=== PATIENT | male | born 1975 | race Two or more races ===

== ENCOUNTER 2021-05-06 06:16 | Inpatient (IN) | payer BC, OTHER ==
[~2021-05-06] VITALS: Ht 167.6 cm; Wt 73.4 kg
[2021-05-06] MEDS ORDERED: SODIUM CHLORIDE 0.9% 1,000 ML IV ONE (09:15)
[2021-05-06 10:06] LABS: INR 1.63 (0.9-1.15); Partial Thromboplastin Time 30.4 sec (23.6-33.0)
[2021-05-06] MEDS ORDERED: IOHEXOL 300 MG/ML 100ML BOTTLE IJ ONE (10:10)
[2021-05-06 10:16] LABS: Basophils # (auto) 0.1 10 ^3/uL (0-0.2); Basophils % (auto) 0.7 % (0.0-2.0); Eosinophils # (auto) 0.2 10 ^3/uL (0-0.8); Eosinophils % (auto) 1.5 % (0.0-7.0); Hematocrit 34.7 % (41.0-53.0); Hemoglobin 11.9 g/dL (13.5-17.5); Lymphocytes # (auto) 2.2 10 ^3/uL (0.4-5.4); Lymphocytes % (auto) 15.8 % (10.0-50.0); Mean Corpuscular Hemoglobin 36.4 pg (28.0-32.0); Mean Corpuscular Hgb Conc. 34.4 g/dL (32.0-36.0); Mean Corpuscular Volume 105.6 fL (80.0-100.0); Monocytes # (auto) 1.6 10 ^3/uL (0-1.3); Monocytes % (auto) 11.9 % (0.0-12.0); Neutrophils # (auto) 9.6 10 ^3/uL (1.6-8.6); Neutrophils % (auto) 70.1 % (37.0-80.0); Nucleated Red Blood Cells % 0.1 %; Red Blood Cells 3.28 10^6/uL (4.5-5.90); Red Cell Distribution Width 15.5 % (11.8-14.3); White Blood Cell 13.6 10^3/uL (4.4-10.8)
[2021-05-06 10:27] LABS: Albumin 2.9 g/dL (3.4-5.0); BUN/Creatinine Ratio 14.3; Calcium 8.9 mg/dL (8.5-10.1); Magnesium 1.7 mg/dL (1.6-2.6); Potassium 3.4 mmol/L (3.5-5.1)
[2021-05-06 10:39] LABS: Bilirubin, Total 7.8 mg/dL (0.2-1.0); Total Protein 5.6 g/dL (6.4-8.2)
[2021-05-06] MEDS ORDERED: FUROSEMIDE 40 MG/4 ML VIAL IV ONE (12:30)
[2021-05-06] MEDS ORDERED: SPIRONOLACTONE 25 MG TAB PO ONE (12:30)
[2021-05-06] MEDS ORDERED: LACTULOSE 20Gm/30ML SOLN PO ONE (12:30)
[2021-05-06] MEDS ORDERED: MORPHINE SULFATE INJECTION 2 MG/ML SYRG IV PRN ×2 (15:30→23:00)
[2021-05-06] MEDS ORDERED: NITROGLYCERIN 0.4 MG SL TAB SL PRN ×2 (15:30→23:00)
[2021-05-06] MEDS ORDERED: LISI20TA28 PO (18:21)
[2021-05-06] MEDS ORDERED: DIAZ5TAB3 PO (18:21)
[2021-05-06] MEDS ORDERED: PANT40T PO (18:21)
[2021-05-06] MEDS ORDERED: BUSP15TA60 PO (18:21)
[2021-05-06] MEDS ORDERED: BUPR-60 PO (18:21)
[2021-05-06] MEDS ORDERED: ATEN25TA PO (18:21)
[2021-05-06] MEDS ORDERED: CHOL20007 PO (18:23)
[2021-05-06] MEDS ORDERED: POM (18:23)
[2021-05-06] MEDS ORDERED: ASCO500T11 PO (18:23)
[2021-05-06] MEDS ORDERED: FERR27TA2 PO (18:23)
[2021-05-06] MEDS ORDERED: MILK1000 PO (18:23)
[2021-05-06] MEDS ORDERED: MULT-1018 PO (18:23)
[2021-05-06] MEDS ORDERED: ALBUMIN 25% 100 ML IV ONE (21:45)
[2021-05-06] MEDS ORDERED: PANTOPRAZOLE 40 MG/10 ML VIAL INJ IV ONE (21:45)
[2021-05-06] MEDS ORDERED: POTASSIUM CHL 20 Meq TABLET PO ONE (21:45)
[2021-05-06] MEDS ORDERED: CEFTRIAXONE SODIUM 2 GM in D5W 5% 50 ML IV ONE (21:45)
[2021-05-06 21:51] VITALS: BP 116/68
[2021-05-06 22:00] VITALS: BP 116/68
[2021-05-06] MEDS ORDERED: BUSP10TA90 PO (22:12)
[2021-05-06] MEDS ORDERED: ATEN-60 PO (22:12)
[2021-05-06] MEDS ORDERED: BUPR150T8 PO (22:12)
[2021-05-06] MEDS ORDERED: LORazepam 2MG/ML-1ML VIAL IV PRN (23:00)
[2021-05-06] MEDS: ALBUMIN 25% 100 ML IV SCH (23:19)
[2021-05-06] MEDS: PROPRANOLOL HCL 20 MG TAB PO SCH (23:21)
[2021-05-06] MEDS: LACTULOSE 20Gm/30ML SOLN PO SCH (23:23)
[2021-05-07] MEDS ORDERED: KETOROLAC TROMETH 30 MG/ML 1ML VIAL IV ONE
[2021-05-07] MEDS ORDERED: cefTRIAXone 1GM/50ML D5W 100 ML IV ONE (01:45)
[2021-05-07] MEDS ORDERED: IPRATROPIUM BROM 0.5 MG/2.5ML INH SOL NEB SCH (02:00)
[2021-05-07] MEDS ORDERED: IPRATROPIUM BROM 0.5 MG/2.5ML INH SOL NEB PRN (02:00)
[2021-05-07] MEDS ORDERED: CEFTRIAXONE SODIUM 2 GM in D5W 5% 50 ML IV SCH (02:00)
[2021-05-07] MEDS: LACTULOSE 20Gm/30ML SOLN PO SCH ×4 (02:00→21:52)
[2021-05-07 05:00] VITALS: BP 113/75
[2021-05-07] MEDS: ALBUMIN 25% 100 ML IV SCH (05:27)
[2021-05-07 08:26] LABS: Basophils # (auto) 0.1 10 ^3/uL (0-0.2); Basophils % (auto) 0.5 % (0.0-2.0); Eosinophils # (auto) 0.3 10 ^3/uL (0-0.8); Eosinophils % (auto) 2.6 % (0.0-7.0); Hematocrit 31.7 % (41.0-53.0); Hemoglobin 11.2 g/dL (13.5-17.5); Mean Corpuscular Hemoglobin 37.1 pg (28.0-32.0); Mean Corpuscular Hgb Conc. 35.2 g/dL (32.0-36.0); Mean Corpuscular Volume 105.3 fL (80.0-100.0); Monocytes # (auto) 0.9 10 ^3/uL (0-1.3); Monocytes % (auto) 8.6 % (0.0-12.0); Neutrophils # (auto) 6.8 10 ^3/uL (1.6-8.6); Neutrophils % (auto) 68.3 % (37.0-80.0); Nucleated Red Blood Cells % 0.1 %; Red Blood Cells 3.01 10^6/uL (4.5-5.90); Red Cell Distribution Width 15.1 % (11.8-14.3)
[2021-05-07 08:58] LABS: Albumin 3.1 g/dL (3.4-5.0); Calcium 8.6 mg/dL (8.5-10.1); Magnesium 2.3 mg/dL (1.6-2.6); Potassium 3.2 mmol/L (3.5-5.1)
[2021-05-07 09:00] VITALS: BP 102/62
[2021-05-07 09:10] LABS: INR 1.65 (0.9-1.15); Partial Thromboplastin Time 34.8 sec (23.6-33.0)
[2021-05-07 09:16] LABS: BUN/Creatinine Ratio 14.1; Bilirubin, Total 6.2 mg/dL (0.2-1.0); Phosphorus 2.6 mg/dL (2.5-4.90); Total Protein 5.6 g/dL (6.4-8.2); Uric Acid 4.5 mg/dL (3.5-7.2)
[2021-05-07] MEDS ORDERED: POTASSIUM CHL 20 Meq TABLET PO SCH (10:00)
[2021-05-07] MEDS ORDERED: predniSONE 20 MG TAB PO SCH (10:00)
[2021-05-07] MEDS: FUROSEMIDE 20 MG TAB PO SCH (10:25)
[2021-05-07] MEDS: PROPRANOLOL HCL 20 MG TAB PO SCH ×2 (10:25→21:53)
[2021-05-07] MEDS: SPIRONOLACTONE 25 MG TAB PO SCH (10:25)
[2021-05-07] MEDS: rifAXIMin 550 MG TAB PO SCH ×2 (10:25→21:52)
[2021-05-07] MEDS: PANTOPRAZOLE 40 MG/10 ML VIAL INJ IV SCH (10:30)
[2021-05-07] MEDS ORDERED: POTASSIUM CHL 20 Meq TABLET PO ONE (10:45)
[2021-05-07] MEDS ORDERED: FOLIC ACID 1 MG in D5W 5% 50 ML INJ SCH (10:59)
[2021-05-07] MEDS ORDERED: PHYTONADIONE (VIT K)10 MG/ML 1ML VIAL SUBCUT ONE (11:00)
[2021-05-07] MEDS ORDERED: FOLIC ACID 1 MG in D5W 5% 50 ML INJ ONE (11:00)
[2021-05-07] MEDS ORDERED: traMADol HCL 50 MG TAB PO PRN (11:00)
[2021-05-07] MEDS ORDERED: THIAMINE 100mg/ml INJ (200mg/2ml VIAL) IV ONE (11:00)
[2021-05-07 12:53] LABS: Hepatitis A Ab IgM Negative
[2021-05-07 13:00] VITALS: BP 104/66
[2021-05-07 13:14] LABS: Hepatitis B Core IgM Negative
[2021-05-07 13:17] LABS: Hepatitis C Antibody Negative (Negative)
[2021-05-07 17:00] VITALS: BP 103/61
[2021-05-07 22:00] VITALS: BP 96/66
[2021-05-07 22:20] LABS: Urine Bacteria NONE SEEN /hpf (None Seen); Urine Blood Negative /uL (Negative); Urine Mucus FEW (None Seen); Urine Specific Gravity 1.032 (1.001-1.035); Urine WBC 2 /hpf (0 - 3)
[2021-05-08 05:00] VITALS: BP 108/69
[2021-05-08] MEDS: LACTULOSE 20Gm/30ML SOLN PO SCH ×2 (05:15→14:00)
[2021-05-08 07:40] LABS: Basophils # (auto) 0.1 10 ^3/uL (0-0.2); Basophils % (auto) 0.4 % (0.0-2.0); Eosinophils # (auto) 0.2 10 ^3/uL (0-0.8); Eosinophils % (auto) 1.1 % (0.0-7.0); Hematocrit 34.6 % (41.0-53.0); Hemoglobin 11.8 g/dL (13.5-17.5); Lymphocytes # (auto) 2.6 10 ^3/uL (0.4-5.4); Lymphocytes % (auto) 17.2 % (10.0-50.0); Mean Corpuscular Hemoglobin 36.2 pg (28.0-32.0); Mean Corpuscular Hgb Conc. 34.2 g/dL (32.0-36.0); Monocytes # (auto) 1.4 10 ^3/uL (0-1.3); Neutrophils # (auto) 10.9 10 ^3/uL (1.6-8.6); Neutrophils % (auto) 72.3 % (37.0-80.0); Nucleated Red Blood Cells % 0.1 %; Red Blood Cells 3.27 10^6/uL (4.5-5.90); Red Cell Distribution Width 15.1 % (11.8-14.3)
[2021-05-08 07:42] LABS: Mean Corpuscular Volume 105.8 fL (80.0-100.0)
[2021-05-08 07:59] LABS: Calcium 8.8 mg/dL (8.5-10.1); Potassium 3.4 mmol/L (3.5-5.1)
[2021-05-08 08:03] LABS: BUN/Creatinine Ratio 20.3; Bilirubin, Total 6.2 mg/dL (0.2-1.0); Total Protein 5.4 g/dL (6.4-8.2)
[2021-05-08 09:00] VITALS: BP 101/64
[2021-05-08] MEDS ORDERED: cefTRIAXone 1GM/50ML D5W 50 ML IV SCH (09:00)
[2021-05-08] MEDS: FUROSEMIDE 20 MG TAB PO SCH (10:00)
[2021-05-08] MEDS: rifAXIMin 550 MG TAB PO SCH (10:00)
[2021-05-08] MEDS ORDERED: THIAMINE 100mg/ml INJ (200mg/2ml VIAL) IV SCH (10:00)
[2021-05-08] MEDS: SPIRONOLACTONE 25 MG TAB PO SCH (10:00)
[2021-05-08] MEDS: PROPRANOLOL HCL 20 MG TAB PO SCH (10:00)
[2021-05-08] MEDS: PANTOPRAZOLE 40 MG/10 ML VIAL INJ IV SCH (10:00)
[2021-05-08] MEDS ORDERED: POTASSIUM CHL 20 Meq TABLET PO ONE (10:15)
[2021-05-08] MEDS ORDERED: FOLIC ACID 1 MG TAB PO SCH (11:08)
[2021-05-08 13:00] VITALS: BP 110/72
[2021-05-08 13:17] VITALS: BP 110/72
== END 2021-05-08 14:40 | disposition home or self-care (01) | DRG 432 ==
LOC: ER 06:16 → OVERFLOW 15:21 → CENTRAL 21:23
PROVIDERS: ADMIT Hospitalist; ATTEND Internal Medicine
PROC: 0W9G3ZX Drainage of Peritoneal Cavity, Percutaneous Approach, Diagnostic (ICD-10-PCS; principal; 2021-05-07)
DX: K70.31 Alcoholic cirrhosis of liver with ascites (principal); E43 Unspecified severe protein-calorie malnutrition; K65.2 Spontaneous bacterial peritonitis; K76.6 Portal hypertension; D68.4 Acquired coagulation factor deficiency; D53.9 Nutritional anemia, unspecified; K42.9 Umbilical hernia without obstruction or gangrene; K72.90 Hepatic failure, unspecified without coma; Z20.822 Contact with and (suspected) exposure to COVID-19; K70.11 Alcoholic hepatitis with ascites; D69.6 Thrombocytopenia, unspecified; D75.89 Other specified diseases of blood and blood-forming organs; E87.6 Hypokalemia; D72.829 Elevated white blood cell count, unspecified; K31.89 Other diseases of stomach and duodenum; J44.9 Chronic obstructive pulmonary disease, unspecified; F17.200 Nicotine dependence, unspecified, uncomplicated; F32.9 Major depressive disorder, single episode, unspecified; F41.9 Anxiety disorder, unspecified; K29.20 Alcoholic gastritis without bleeding; Z79.899 Other long term (current) drug therapy; Z80.0 Family history of malignant neoplasm of digestive organs; Z68.26 Body mass index [BMI] 26.0-26.9, adult
CPT/HCPCS: 36415; 71046; 74177; 76705; 76942; 80053; 80074; 81001; 82140; 82306; 83690; 83735; 83880; 84100; 84443; 84484; 84550; 85025; 85610; 85730; 87040; 87086; 87205; 87426; 89051; 93005; 96361; 96374; C9113; G0378; J0696; J1885; J3430; J7060; P9047

== ENCOUNTER 2021-06-07 02:38 | Inpatient (IN) | payer BC ==
[~2021-06-07] VITALS: Ht 167.6 cm; Wt 73.7 kg
[~2021-06-07 02:38] MED LIST: ASCO500T11 PO; ATEN25TA PO; BUPR-60 PO; BUSP10TA90 PO; CHOL20007 PO; DIAZ5TAB3 PO; FERR27TA2 PO; LISI20TA28 PO; MILK1000 PO; MULT-1018 PO; PANT40T PO; POM
[2021-06-07 03:32] LABS: Eosinophils # (auto) 0 10 ^3/uL (0-0.8); Hematocrit 33.6 % (41.0-53.0); Monocytes # (auto) 0.3 10 ^3/uL (0-1.3); Neutrophils # (auto) 11.9 10 ^3/uL (1.6-8.6); Red Cell Distribution Width 14.9 % (11.8-14.3)
[2021-06-07 03:33] LABS: Basophils # (auto) 0.1 10 ^3/uL (0-0.2); Basophils % (auto) 0.6 % (0.0-2.0); Eosinophils % (auto) 0.2 % (0.0-7.0); Hemoglobin 11.7 g/dL (13.5-17.5); Lymphocytes % (auto) 7.3 % (10.0-50.0); Mean Corpuscular Hemoglobin 36.5 pg (28.0-32.0); Mean Corpuscular Hgb Conc. 34.8 g/dL (32.0-36.0); Monocytes % (auto) 2.4 % (0.0-12.0); Neutrophils % (auto) 89.5 % (37.0-80.0); White Blood Cell 13.2 10^3/uL (4.4-10.8)
[2021-06-07 03:47] LABS: Albumin 2.8 g/dL (3.4-5.0); BUN/Creatinine Ratio 13.1; Calcium 8.7 mg/dL (8.5-10.1); Potassium 3.4 mmol/L (3.5-5.1)
[2021-06-07 03:50] LABS: Bilirubin, Total 13.2 mg/dL (0.2-1.0); Total Protein 5.6 g/dL (6.4-8.2)
[2021-06-07 04:17] LABS: INR 1.61 (0.9-1.15); Partial Thromboplastin Time 29.6 sec (23.6-33.0)
[2021-06-07] MEDS ORDERED: MORPHINE SULFATE 4 MG/ML SYR/VIAL IV ONE (06:45)
[2021-06-07] MEDS ORDERED: SPIRONOLACTONE 25 MG TAB PO ONE (07:30)
[2021-06-07] MEDS ORDERED: FUROSEMIDE 100 MG/10ML VIAL IV ONE (07:30)
[2021-06-07] MEDS ORDERED: ACETAMINOPHEN 325 MG TAB PO PRN (08:15)
[2021-06-07] MEDS ORDERED: ALUM & MAG HYDROX-SIMETH LIQ(MAALOX) 30 ML PO PRN (08:15)
[2021-06-07] MEDS ORDERED: LORazepam 0.5 MG TAB PO PRN (08:15)
[2021-06-07] MEDS ORDERED: MORPHINE SULFATE INJECTION 2 MG/ML SYRG IV PRN ×2 (08:15)
[2021-06-07] MEDS ORDERED: NITROGLYCERIN 0.4 MG SL TAB SL PRN (08:15)
[2021-06-07] MEDS ORDERED: ONDANSETRON HCL 4 MG/2 ML VIAL IV PRN (08:15)
[2021-06-07] MEDS ORDERED: DEXTROSE (50%) 50ML SYRG IV PRN (09:45)
[2021-06-07] MEDS ORDERED: cefTRIAXone 1GM/50ML D5W 50 ML IV SCH (10:00)
[2021-06-07 10:53] LABS: Blood Alcohol < 3.0 mg/dL (0-5); Lipase 232 U/L (73-393)
[2021-06-07 11:15] LABS: Basophils # (auto) 0 10 ^3/uL (0-0.2); Eosinophils # (auto) 0 10 ^3/uL (0-0.8); Eosinophils % (auto) 0.1 % (0.0-7.0); Hemoglobin 11.8 g/dL (13.5-17.5); Monocytes # (auto) 0.3 10 ^3/uL (0-1.3); Nucleated Red Blood Cells % 0.1 %; Red Cell Distribution Width 14.7 % (11.8-14.3)
[2021-06-07 11:17] LABS: Basophils % (auto) 0.3 % (0.0-2.0); Hematocrit 33.9 % (41.0-53.0); Lymphocytes % (auto) 8.8 % (10.0-50.0); Mean Corpuscular Hemoglobin 36.6 pg (28.0-32.0); Mean Corpuscular Hgb Conc. 34.9 g/dL (32.0-36.0); Monocytes % (auto) 2.6 % (0.0-12.0); Neutrophils # (auto) 10.1 10 ^3/uL (1.6-8.6); Neutrophils % (auto) 88.2 % (37.0-80.0); Red Blood Cells 3.23 10^6/uL (4.5-5.90); White Blood Cell 11.4 10^3/uL (4.4-10.8)
[2021-06-07] MEDS: FUROSEMIDE 40 MG/4 ML VIAL IV SCH ×2 (13:24→13:47)
[2021-06-07] MEDS: THIAMINE HCL 100 MG TAB PO SCH (13:35)
[2021-06-07] MEDS: InsuLIN REG 1unit/0.01ml Soln (100units/ml) SC SCH ×3 (13:36→22:00)
[2021-06-07] MEDS: SPIRONOLACTONE 25 MG TAB PO SCH (13:36)
[2021-06-07] MEDS: ACCU-CHEK COMFORT CURVE STRIP VI SCH ×3 (13:36→22:00)
[2021-06-07] MEDS: CEFTRIAXONE SODIUM 2 GM in D5W 5% 50 ML IV SCH (14:30)
[2021-06-07 22:00] VITALS: BP 107/71
[2021-06-07] MEDS: HYDROcodone-ACET 5/325MG TAB PO PRN (22:18)
[2021-06-07] MEDS ORDERED: PROP20TA73 PO (23:48)
[2021-06-08 04:00] VITALS: BP 91/57
[2021-06-08] MEDS: InsuLIN REG 1unit/0.01ml Soln (100units/ml) SC SCH ×4 (07:00→22:00)
[2021-06-08] MEDS: ACCU-CHEK COMFORT CURVE STRIP VI SCH ×4 (07:24→22:13)
[2021-06-08 09:00] VITALS: BP 97/61
[2021-06-08] MEDS: FUROSEMIDE 40 MG/4 ML VIAL IV SCH (09:43)
[2021-06-08] MEDS: SPIRONOLACTONE 25 MG TAB PO SCH (09:43)
[2021-06-08] MEDS: THIAMINE HCL 100 MG TAB PO SCH (09:43)
[2021-06-08 10:02] VITALS: BP 108/74
[2021-06-08 10:52] VITALS: BP 103/82
[2021-06-08] MEDS: CEFTRIAXONE SODIUM 2 GM in D5W 5% 50 ML IV SCH (13:12)
[2021-06-08] MEDS: ALBUMIN 25% 100 ML IV SCH ×2 (13:13→13:30)
[2021-06-08] MEDS: HYDROcodone-ACET 5/325MG TAB PO PRN ×2 (16:03→22:17)
[2021-06-08 22:00] VITALS: BP 93/61
[2021-06-09 05:00] VITALS: BP 92/58
[2021-06-09 06:19] LABS: Basophils # (auto) 0 10 ^3/uL (0-0.2); Eosinophils # (auto) 0.2 10 ^3/uL (0-0.8); Hemoglobin 9.6 g/dL (13.5-17.5)
[2021-06-09 06:27] LABS: Basophils % (auto) 0.6 % (0.0-2.0); Eosinophils % (auto) 2.3 % (0.0-7.0); Hematocrit 26.5 % (41.0-53.0); Lymphocytes # (auto) 1.5 10 ^3/uL (0.4-5.4); Lymphocytes % (auto) 19.4 % (10.0-50.0); Mean Corpuscular Hemoglobin 37.3 pg (28.0-32.0); Mean Corpuscular Hgb Conc. 36.1 g/dL (32.0-36.0); Mean Corpuscular Volume 103.2 fL (80.0-100.0); Monocytes # (auto) 0.8 10 ^3/uL (0-1.3); Monocytes % (auto) 10.3 % (0.0-12.0); Neutrophils # (auto) 5.3 10 ^3/uL (1.6-8.6); Neutrophils % (auto) 67.4 % (37.0-80.0); Nucleated Red Blood Cells % 0.1 %; Red Blood Cells 2.56 10^6/uL (4.5-5.90); Red Cell Distribution Width 13.9 % (11.8-14.3); White Blood Cell 7.9 10^3/uL (4.4-10.8)
[2021-06-09 06:31] LABS: Albumin 2.5 g/dL (3.4-5.0); Calcium 8.1 mg/dL (8.5-10.1)
[2021-06-09 06:33] LABS: BUN/Creatinine Ratio 28.7
[2021-06-09] MEDS: ACCU-CHEK COMFORT CURVE STRIP VI SCH ×2 (06:35→11:30)
[2021-06-09] MEDS: InsuLIN REG 1unit/0.01ml Soln (100units/ml) SC SCH ×2 (06:35→11:30)
[2021-06-09 06:36] LABS: Bilirubin, Total 7.1 mg/dL (0.2-1.0); Total Protein 4.5 g/dL (6.4-8.2)
[2021-06-09 09:00] VITALS: BP 105/65
[2021-06-09] MEDS: CEFTRIAXONE SODIUM 2 GM in D5W 5% 50 ML IV SCH (09:46)
[2021-06-09] MEDS: THIAMINE HCL 100 MG TAB PO SCH (09:47)
[2021-06-09] MEDS: SPIRONOLACTONE 25 MG TAB PO SCH (09:47)
[2021-06-09 12:36] VITALS: BP 120/81
[2021-06-09] MEDS: FUROSEMIDE 40 MG/4 ML VIAL IV SCH (12:47)
[2021-06-09] MEDS ORDERED: POTASSIUM CHL 20 Meq TABLET PO ONE (13:00)
[2021-06-09] MEDS ORDERED: LEVO500T31 PO (13:08)
== END 2021-06-09 15:31 | disposition home or self-care (01) | DRG 872 ==
LOC: ER 02:38 → TELE 08:14 → TELE-WESTW 21:45
PROVIDERS: ADMIT Family Medicine; ATTEND Internal Medicine
PROC: 0W9G3ZZ Drainage of Peritoneal Cavity, Percutaneous Approach (ICD-10-PCS; principal; 2021-06-08)
DX: A41.9 Sepsis, unspecified organism (principal); D68.4 Acquired coagulation factor deficiency; E46 Unspecified protein-calorie malnutrition; K76.6 Portal hypertension; K70.31 Alcoholic cirrhosis of liver with ascites; D69.6 Thrombocytopenia, unspecified; K43.9 Ventral hernia without obstruction or gangrene; E87.70 Fluid overload, unspecified; Z20.822 Contact with and (suspected) exposure to COVID-19; I10 Essential (primary) hypertension; R73.9 Hyperglycemia, unspecified; K42.9 Umbilical hernia without obstruction or gangrene; N20.0 Calculus of kidney; Z80.0 Family history of malignant neoplasm of digestive organs; Z82.49 Family history of ischemic heart disease and other diseases of the circulatory system; Z68.26 Body mass index [BMI] 26.0-26.9, adult
CPT/HCPCS: 36415; 74176; 76942; 80053; 80320; 82962; 83036; 83615; 83690; 83986; 85025; 85610; 85730; 87205; 87426; 89051; 96365; 96367; 99291; G0378; J0696; J7060; P9047

== ENCOUNTER → 2021-06-25 | Outpatient (CLI) | payer BC ==
[~2021-06-25] MED LIST changes: -ATEN25TA PO; +BUPR150T8 PO; +BUSP15TA60 PO; -DIAZ5TAB3 PO; -FERR27TA2 PO; +LEVO500T31 PO; -LISI20TA28 PO; -MILK1000 PO; -PANT40T PO; +PROP20TA73 PO; +PROP40TA59 PO; +PROP60CA34 PO
[2021-06-25 12:28] LABS: Basophils # (auto) 0.1 10 ^3/uL (0-0.2); Basophils % (auto) 1.2 % (0.0-2.0); Eosinophils # (auto) 0.2 10 ^3/uL (0-0.8); Lymphocytes # (auto) 2.2 10 ^3/uL (0.4-5.4); Nucleated Red Blood Cells % 0.1 %
[2021-06-25 12:29] LABS: INR 1.48 (0.9-1.15); Partial Thromboplastin Time 29.9 sec (23.6-33.0)
[2021-06-25 12:30] LABS: Hematocrit 30.3 % (41.0-53.0); Hemoglobin 10.7 g/dL (13.5-17.5); Lymphocytes % (auto) 27.8 % (10.0-50.0); Mean Corpuscular Hemoglobin 36.3 pg (28.0-32.0); Mean Corpuscular Hgb Conc. 35.3 g/dL (32.0-36.0); Mean Corpuscular Volume 102.6 fL (80.0-100.0); Monocytes # (auto) 1.1 10 ^3/uL (0-1.3); Monocytes % (auto) 13.6 % (0.0-12.0); Neutrophils # (auto) 4.3 10 ^3/uL (1.6-8.6); Neutrophils % (auto) 54.4 % (37.0-80.0); Red Blood Cells 2.95 10^6/uL (4.5-5.90); Red Cell Distribution Width 14.3 % (11.8-14.3)
== END | disposition home or self-care (01) ==
LOC: US 11:41
DX: K74.60 Unspecified cirrhosis of liver (principal); F32.9 Major depressive disorder, single episode, unspecified; Z82.49 Family history of ischemic heart disease and other diseases of the circulatory system
CPT/HCPCS: 36415; 49083; 76700; 76942; 85025; 85610; 85730; C1729

== ENCOUNTER 2021-06-28 22:07 | Inpatient (IN) | payer BC ==
[~2021-06-28] VITALS: Ht 167.6 cm; Wt 78.0 kg
[~2021-06-28 22:07] MED LIST changes: -BUPR150T8 PO; -BUSP15TA60 PO; -PROP40TA59 PO; -PROP60CA34 PO
[2021-06-28 22:50] LABS: Basophils # (auto) 0 10 ^3/uL (0-0.2); Basophils % (auto) 0.5 % (0.0-2.0); Eosinophils # (auto) 0.3 10 ^3/uL (0-0.8); Eosinophils % (auto) 2.7 % (0.0-7.0); Hematocrit 30.9 % (41.0-53.0); Hemoglobin 10.9 g/dL (13.5-17.5); Lymphocytes # (auto) 1.8 10 ^3/uL (0.4-5.4); Lymphocytes % (auto) 19.2 % (10.0-50.0); Mean Corpuscular Hgb Conc. 35.3 g/dL (32.0-36.0); Mean Corpuscular Volume 101.9 fL (80.0-100.0); Monocytes % (auto) 10.2 % (0.0-12.0); Neutrophils # (auto) 6.3 10 ^3/uL (1.6-8.6); Neutrophils % (auto) 67.4 % (37.0-80.0); Nucleated Red Blood Cells % 0.1 %; Red Blood Cells 3.03 10^6/uL (4.5-5.90); Red Cell Distribution Width 14.5 % (11.8-14.3); White Blood Cell 9.3 10^3/uL (4.4-10.8)
[2021-06-28 23:06] LABS: INR 1.54 (0.9-1.15); Partial Thromboplastin Time 30.5 sec (23.6-33.0)
[2021-06-28 23:14] LABS: Calcium 8.8 mg/dL (8.5-10.1); Potassium 3.5 mmol/L (3.5-5.1)
[2021-06-28 23:21] LABS: BUN/Creatinine Ratio 16.3; Bilirubin, Total 8.4 mg/dL (0.2-1.0); Total Protein 5.6 g/dL (6.4-8.2)
[2021-06-29] MEDS ORDERED: LORazepam 2MG/ML-1ML VIAL IV ONE (04:45)
[2021-06-29] MEDS ORDERED: LACTULOSE 10g/15ml SOLN PR ONE (04:45)
[2021-06-29] MEDS ORDERED: LACTULOSE 20Gm/30ML SOLN PO ONE (04:45)
[2021-06-29] MEDS ORDERED: MORPHINE SULFATE INJECTION 2 MG/ML SYRG IV PRN (10:45)
[2021-06-29] MEDS ORDERED: cefTRIAXone 1GM/50ML D5W 50 ML IV ONE (10:45)
[2021-06-29] MEDS ORDERED: PANTOPRAZOLE 40 MG/10 ML VIAL INJ IV ONE (10:45)
[2021-06-29] MEDS ORDERED: NITROGLYCERIN 0.4 MG SL TAB SL PRN (10:45)
[2021-06-29] MEDS ORDERED: LORazepam 2MG/ML-1ML VIAL IV PRN (10:45)
[2021-06-29] MEDS: D5W/SOD CHLO 0.9% 1,000 ML IV SCH (11:23)
[2021-06-29] MEDS: LACTULOSE 10g/15ml SOLN PR SCH ×2 (14:31→18:35)
[2021-06-29] MEDS ORDERED: HALOPERIDOL LACTATE 5 MG/ML INJ VIAL IM ONE (15:30)
[2021-06-29] MEDS ORDERED: FOLIC ACID 1 MG, MULTIPLE VITAMIN 10 ML, MAGNESIUM SULF SDV 50% 8 MEQ, THIAMINE INJ 100... INJ ONE ×5 (19:30)
[2021-06-30] MEDS: D5W/SOD CHLO 0.9% 1,000 ML IV SCH ×2 (00:16→13:25)
[2021-06-30] MEDS: LACTULOSE 10g/15ml SOLN PR SCH ×2 (01:18→07:00)
[2021-06-30 07:52] LABS: Basophils # (auto) 0.1 10 ^3/uL (0-0.2); Basophils % (auto) 1.3 % (0.0-2.0); Eosinophils # (auto) 0.2 10 ^3/uL (0-0.8); Eosinophils % (auto) 2.5 % (0.0-7.0); Hematocrit 27.7 % (41.0-53.0); Hemoglobin 9.7 g/dL (13.5-17.5); Lymphocytes # (auto) 1.9 10 ^3/uL (0.4-5.4); Lymphocytes % (auto) 20.5 % (10.0-50.0); Mean Corpuscular Hgb Conc. 35.1 g/dL (32.0-36.0); Mean Corpuscular Volume 105.5 fL (80.0-100.0); Monocytes # (auto) 0.8 10 ^3/uL (0-1.3); Monocytes % (auto) 8.9 % (0.0-12.0); Neutrophils # (auto) 6.3 10 ^3/uL (1.6-8.6); Neutrophils % (auto) 66.8 % (37.0-80.0); Nucleated Red Blood Cells % 0.1 %; Red Blood Cells 2.63 10^6/uL (4.5-5.90); Red Cell Distribution Width 14.6 % (11.8-14.3); White Blood Cell 9.4 10^3/uL (4.4-10.8)
[2021-06-30 08:01] LABS: Potassium 3.4 mmol/L (3.5-5.1)
[2021-06-30 08:22] LABS: Albumin 2.4 g/dL (3.4-5.0); BUN/Creatinine Ratio 23.5; Bilirubin, Total 9.7 mg/dL (0.2-1.0); Calcium 8.7 mg/dL (8.5-10.1); Total Protein 5.2 g/dL (6.4-8.2)
[2021-06-30] MEDS: cefTRIAXone 1GM/50ML D5W 50 ML IV SCH (10:50)
[2021-06-30] MEDS: PANTOPRAZOLE 40 MG/10 ML VIAL INJ IV SCH (10:55)
[2021-06-30] MEDS ORDERED: FOLIC ACID 1 MG, MULTIPLE VITAMIN 10 ML, MAGNESIUM SULF SDV 50% 8 MEQ, THIAMINE INJ 100... INJ SCH ×5 (12:00)
[2021-06-30] MEDS ORDERED: POTASSIUM CHL 20 Meq TABLET PO ONE (12:15)
[2021-06-30] MEDS: LACTULOSE 20Gm/30ML SOLN PO SCH (18:00)
[2021-06-30] MEDS ORDERED: PROP60CA34 PO (19:56)
[2021-06-30] MEDS ORDERED: BUSP15TA60 PO (19:59)
[2021-06-30] MEDS ORDERED: PROP40TA59 PO (19:59)
[2021-06-30] MEDS ORDERED: BUPR150T8 PO (19:59)
[2021-06-30 20:55] VITALS: BP 132/77
[2021-07-01] MEDS: D5W/SOD CHLO 0.9% 1,000 ML IV SCH ×2 (02:45→09:00)
[2021-07-01] MEDS: LACTULOSE 20Gm/30ML SOLN PO SCH ×5 (06:00→23:52)
[2021-07-01 06:17] VITALS: BP 118/74
[2021-07-01 07:39] LABS: Urine Bacteria FEW /hpf (None Seen); Urine Blood 3+ /uL (Negative); Urine Mucus FEW (None Seen); Urine Specific Gravity 1.022 (1.001-1.035); Urine WBC 38 /hpf (0 - 3)
[2021-07-01 07:50] LABS: Alcohol, Urine < 3.0 mg/dL (0-10); Amphetamine Screen, Urine NEGATIVE (NEGATIVE); Barbiturate Scree,Urine NEGATIVE (NEGATIVE); Benzodiazephine Screen, Urine POSITIVE (NEGATIVE); Cannabinoid Screen, Urine POSITIVE (NEGATIVE); Cocaine Screen, Urine NEGATIVE (NEGATIVE); Phencyclidine Screen, Urine NEGATIVE (NEGATIVE)
[2021-07-01 07:59] LABS: Opiate Scree,Urine NEGATIVE (NEGATIVE)
[2021-07-01 08:00] LABS: Basophils # (auto) 0 10 ^3/uL (0-0.2); Basophils % (auto) 0.3 % (0.0-2.0); Eosinophils # (auto) 0.4 10 ^3/uL (0-0.8); Eosinophils % (auto) 4.8 % (0.0-7.0); Hematocrit 25.1 % (41.0-53.0); Hemoglobin 8.9 g/dL (13.5-17.5); Lymphocytes # (auto) 2.1 10 ^3/uL (0.4-5.4); Lymphocytes % (auto) 28.1 % (10.0-50.0); Mean Corpuscular Hemoglobin 36.5 pg (28.0-32.0); Mean Corpuscular Hgb Conc. 35.6 g/dL (32.0-36.0); Mean Corpuscular Volume 102.5 fL (80.0-100.0); Monocytes # (auto) 0.9 10 ^3/uL (0-1.3); Monocytes % (auto) 11.9 % (0.0-12.0); Neutrophils # (auto) 4.1 10 ^3/uL (1.6-8.6); Neutrophils % (auto) 54.9 % (37.0-80.0); Nucleated Red Blood Cells % 0.1 %; Red Blood Cells 2.45 10^6/uL (4.5-5.90); Red Cell Distribution Width 14.2 % (11.8-14.3); White Blood Cell 7.5 10^3/uL (4.4-10.8)
[2021-07-01 08:15] LABS: Albumin 2.4 g/dL (3.4-5.0); BUN/Creatinine Ratio 21.8; Calcium 7.9 mg/dL (8.5-10.1)
[2021-07-01 08:18] LABS: Total Protein 4.7 g/dL (6.4-8.2)
[2021-07-01 08:26] LABS: Potassium 2.9 mmol/L (3.5-5.1)
[2021-07-01 09:00] VITALS: BP 125/84
[2021-07-01] MEDS: cefTRIAXone 1GM/50ML D5W 50 ML IV SCH (09:34)
[2021-07-01] MEDS: PANTOPRAZOLE 40 MG/10 ML VIAL INJ IV SCH (09:35)
[2021-07-01] MEDS ORDERED: POTASSIUM CHL 20 Meq TABLET PO ONE (11:30)
[2021-07-01 13:00] VITALS: BP 106/64
[2021-07-01 17:00] VITALS: BP 120/82
[2021-07-01] MEDS: HYDROcodone-ACET 5/325MG TAB PO PRN (21:03)
[2021-07-01 22:00] VITALS: BP 122/84
[2021-07-02 05:00] VITALS: BP_SYST 123; BP_SYST 124; BP_DIAS 76; BP_DIAS 80
[2021-07-02 06:07] LABS: Basophils # (auto) 0 10 ^3/uL (0-0.2); Basophils % (auto) 0.2 % (0.0-2.0); Eosinophils # (auto) 0.3 10 ^3/uL (0-0.8); Eosinophils % (auto) 4.6 % (0.0-7.0); Hematocrit 24.8 % (41.0-53.0); Hemoglobin 8.9 g/dL (13.5-17.5); Lymphocytes # (auto) 1.8 10 ^3/uL (0.4-5.4); Lymphocytes % (auto) 25.9 % (10.0-50.0); Mean Corpuscular Hemoglobin 36.2 pg (28.0-32.0); Mean Corpuscular Hgb Conc. 35.8 g/dL (32.0-36.0); Mean Corpuscular Volume 101.2 fL (80.0-100.0); Monocytes # (auto) 0.8 10 ^3/uL (0-1.3); Neutrophils % (auto) 57.3 % (37.0-80.0); Nucleated Red Blood Cells % 0.2 %; Red Blood Cells 2.45 10^6/uL (4.5-5.90); Red Cell Distribution Width 14.3 % (11.8-14.3); White Blood Cell 6.9 10^3/uL (4.4-10.8)
[2021-07-02] MEDS: LACTULOSE 20Gm/30ML SOLN PO SCH ×3 (06:27→18:00)
[2021-07-02 06:30] LABS: Potassium 3.3 mmol/L (3.5-5.1)
[2021-07-02 06:37] LABS: Albumin 2.5 g/dL (3.4-5.0); BUN/Creatinine Ratio 16.4
[2021-07-02 06:45] LABS: Bilirubin, Total 5.8 mg/dL (0.2-1.0); Total Protein 4.8 g/dL (6.4-8.2)
[2021-07-02 07:58] VITALS: BP 124/89
[2021-07-02] MEDS: cefTRIAXone 1GM/50ML D5W 50 ML IV SCH (09:00)
[2021-07-02] MEDS ORDERED: POTASSIUM CHL 20 Meq TABLET PO ONE (10:00)
[2021-07-02] MEDS: rifAXIMin 550 MG TAB PO SCH ×2 (11:16→22:11)
[2021-07-02] MEDS: PANTOPRAZOLE 40 MG/10 ML VIAL INJ IV SCH (11:16)
[2021-07-02 12:01] VITALS: BP 125/79
[2021-07-02 16:00] VITALS: BP 125/82
[2021-07-02] MEDS: HYDROcodone-ACET 5/325MG TAB PO PRN ×2 (16:04→22:12)
[2021-07-02 17:43] LABS: INR 1.66 (0.9-1.15); Partial Thromboplastin Time 31.2 sec (23.6-33.0)
[2021-07-02 22:02] VITALS: BP 121/90
[2021-07-03] MEDS: LACTULOSE 20Gm/30ML SOLN PO SCH ×5 (00:17→18:00)
[2021-07-03 05:00] VITALS: BP 125/84
[2021-07-03 08:34] VITALS: BP 131/79
[2021-07-03] MEDS: cefTRIAXone 1GM/50ML D5W 50 ML IV SCH (09:00)
[2021-07-03 10:18] LABS: BUN/Creatinine Ratio 14.1; Calcium 8.7 mg/dL (8.5-10.1); Potassium 4.2 mmol/L (3.5-5.1)
[2021-07-03] MEDS ORDERED: RIFA550T PO (11:45)
[2021-07-03] MEDS ORDERED: ALBUMIN 25% 50 ML IV ONE (11:45)
[2021-07-03] MEDS ORDERED: LACT10SO3 PO (11:45)
[2021-07-03] MEDS: rifAXIMin 550 MG TAB PO SCH (12:22)
[2021-07-03] MEDS: PANTOPRAZOLE 40 MG/10 ML VIAL INJ IV SCH (12:22)
[2021-07-03 12:32] VITALS: BP 127/81
[2021-07-03 15:55] VITALS: BP 107/70
[2021-07-03 16:44] VITALS: BP 113/74
== END 2021-07-03 19:55 | disposition home health service (06) | DRG 432 ==
LOC: EDBD 22:07 → EDSEX 22:07 → ER 22:07 → TELE 06-29 10:37 → TELE-WESTW 06-30 13:01
PROVIDERS: ADMIT Internal Medicine; ATTEND Internal Medicine
PROC: 0W9G3ZZ Drainage of Peritoneal Cavity, Percutaneous Approach (ICD-10-PCS; principal; 2021-07-03)
DX: K70.31 Alcoholic cirrhosis of liver with ascites (principal); G93.41 Metabolic encephalopathy; E87.1 Hypo-osmolality and hyponatremia; D68.9 Coagulation defect, unspecified; K72.90 Hepatic failure, unspecified without coma; S00.03XA Contusion of scalp, initial encounter; D69.6 Thrombocytopenia, unspecified; S00.11XA Contusion of right eyelid and periocular area, initial encounter; D64.9 Anemia, unspecified; I10 Essential (primary) hypertension; Z20.822 Contact with and (suspected) exposure to COVID-19; E87.6 Hypokalemia; S00.12XA Contusion of left eyelid and periocular area, initial encounter; W01.0XXA Fall on same level from slipping, tripping and stumbling without subsequent striking against object, initial encounter; Y93.89 Activity, other specified; Y92.091 Bathroom in other non-institutional residence as the place of occurrence of the external cause; Y99.8 Other external cause status; Z82.49 Family history of ischemic heart disease and other diseases of the circulatory system; Z80.0 Family history of malignant neoplasm of digestive organs; Z91.81 History of falling
CPT/HCPCS: 36415; 70450; 70486; 71045; 72125; 76705; 76942; 80048; 80053; 80307; 81001; 82140; 83605; 83690; 83880; 84484; 85025; 85610; 85730; 87426; 93005; 95819; 96374; 96375; 97163; C9113; G0378; J0696; J7042

== ENCOUNTER 2021-07-12 17:16 | Inpatient (IN) | payer BC ==
[~2021-07-12] VITALS: Ht 167.6 cm; Wt 72.5 kg
[~2021-07-12 17:16] MED LIST changes: +BUPR150T8 PO; +BUSP15TA60 PO; +LACT10SO3 PO; +PROP40TA59 PO; +RIFA550T PO
[2021-07-12] MEDS ORDERED: ONDANSETRON HCL 4 MG/2 ML VIAL IV ONE (17:45)
[2021-07-12] MEDS ORDERED: MORPHINE SULFATE 4 MG/ML SYR/VIAL IV ONE (17:45)
[2021-07-12 19:42] LABS: Albumin 3.2 g/dL (3.4-5.0); Calcium 9.1 mg/dL (8.5-10.1)
[2021-07-12 19:47] LABS: BUN/Creatinine Ratio 9.9; Bilirubin, Total 8.9 mg/dL (0.2-1.0); Total Protein 5.8 g/dL (6.4-8.2)
[2021-07-12 19:59] LABS: INR 1.65 (0.9-1.15); Partial Thromboplastin Time 30.8 sec (23.6-33.0)
[2021-07-12 20:18] LABS: Potassium 2.8 mmol/L (3.5-5.1)
[2021-07-12 20:24] LABS: Basophils # (auto) 0.1 10 ^3/uL (0-0.2); Eosinophils # (auto) 0 10 ^3/uL (0-0.8); Eosinophils % (auto) 0.2 % (0.0-7.0); Lymphocytes # (auto) 0.6 10 ^3/uL (0.4-5.4); Nucleated Red Blood Cells % 0.1 %; Red Cell Distribution Width 14.7 % (11.8-14.3)
[2021-07-12 20:25] LABS: Basophils % (auto) 0.4 % (0.0-2.0); Hematocrit 33.3 % (41.0-53.0); Hemoglobin 12.1 g/dL (13.5-17.5); Lymphocytes % (auto) 3.3 % (10.0-50.0); Mean Corpuscular Hemoglobin 35.8 pg (28.0-32.0); Mean Corpuscular Hgb Conc. 36.4 g/dL (32.0-36.0); Mean Corpuscular Volume 98.6 fL (80.0-100.0); Monocytes # (auto) 0.3 10 ^3/uL (0-1.3); Monocytes % (auto) 1.9 % (0.0-12.0); Neutrophils # (auto) 17.1 10 ^3/uL (1.6-8.6); Neutrophils % (auto) 94.2 % (37.0-80.0); Red Blood Cells 3.38 10^6/uL (4.5-5.90); White Blood Cell 18.1 10^3/uL (4.4-10.8)
[2021-07-12] MEDS: POTASSIUM CHL 10MEQ/50ML 50 ML IV SCH ×2 (21:12→22:28)
[2021-07-12] MEDS ORDERED: cefTRIAXone 1GM/50ML D5W 50 ML IV ONE (21:30)
[2021-07-12] MEDS ORDERED: ONDANSETRON HCL 4 MG/2 ML VIAL IV PRN (21:30)
[2021-07-12] MEDS: LACTULOSE 20Gm/30ML SOLN PO SCH (22:28)
[2021-07-12 22:39] LABS: Lactic Acid w/Reflex 8.8 mmol/L (0.4-2.0)
[2021-07-12 23:30] VITALS: BP 128/77
[2021-07-13] VITALS (7 sets, daily range): BP systolic 105–130; BP diastolic 54–77
[2021-07-13 05:50] LABS: Basophils # (auto) 0 10 ^3/uL (0-0.2); Eosinophils # (auto) 0 10 ^3/uL (0-0.8); Eosinophils % (auto) 0.1 % (0.0-7.0); Monocytes # (auto) 0.7 10 ^3/uL (0-1.3); Red Blood Cells 3.05 10^6/uL (4.5-5.90)
[2021-07-13] MEDS: buPROPion HCL 75 MG TAB PO SCH ×2 (06:02→19:00)
[2021-07-13] MEDS: MORPHINE SULFATE 4 MG/ML SYR/VIAL IV PRN (06:03)
[2021-07-13 06:14] LABS: Potassium 3.1 mmol/L (3.5-5.1)
[2021-07-13 06:19] LABS: Albumin 2.8 g/dL (3.4-5.0); BUN/Creatinine Ratio 11.3; Calcium 8.7 mg/dL (8.5-10.1)
[2021-07-13 06:33] LABS: Total Protein 5.3 g/dL (6.4-8.2)
[2021-07-13 06:38] LABS: Basophils % (auto) 0.1 % (0.0-2.0); Hematocrit 30.4 % (41.0-53.0); Lymphocytes # (auto) 0.7 10 ^3/uL (0.4-5.4); Mean Corpuscular Hgb Conc. 36.1 g/dL (32.0-36.0); Mean Corpuscular Volume 99.7 fL (80.0-100.0); Monocytes % (auto) 2.8 % (0.0-12.0); Neutrophils # (auto) 23.4 10 ^3/uL (1.6-8.6); Red Cell Distribution Width 14.7 % (11.8-14.3); White Blood Cell 24.9 10^3/uL (4.4-10.8)
[2021-07-13] MEDS: cefTRIAXone 1GM/50ML D5W 50 ML IV SCH (08:51)
[2021-07-13] MEDS: PROPRANOLOL HCL 20 MG TAB PO SCH (10:00)
[2021-07-13] MEDS: rifAXIMin 550 MG TAB PO SCH ×2 (10:28→21:36)
[2021-07-13] MEDS: LACTULOSE 20Gm/30ML SOLN PO SCH ×3 (13:19→21:36)
[2021-07-13] MEDS ORDERED: SODIUM CHL 3% 500 ML IV ONE (15:45)
[2021-07-13] MEDS ORDERED: MAGNESIUM OXIDE 400 MG TAB PO ONE (15:45)
[2021-07-13] MEDS ORDERED: POTASSIUM CHL 20 Meq TABLET PO ONE (16:00)
[2021-07-13] MEDS: MAGNESIUM SULFATE 1GM/100ML 100 ML IV SCH ×3 (17:36→21:49)
[2021-07-13] MEDS ORDERED: POTASSIUM CHL 10MEQ/50ML 50 ML IV ONE (19:00)
[2021-07-13] MEDS: ALBUMIN 25% 100 ML IV SCH ×2 (19:07→23:07)
[2021-07-13] MEDS ORDERED: MAGNESIUM SULFATE 1GM/100ML 100 ML IV ONE (21:47)
[2021-07-13] MEDS ORDERED: ALBUMIN 25% 100 ML IV SCH (22:00)
[2021-07-14 04:32] VITALS: BP 100/60
[2021-07-14] MEDS: buPROPion HCL 75 MG TAB PO SCH ×2 (06:03→19:00)
[2021-07-14 06:26] LABS: Potassium 3.8 mmol/L (3.5-5.1)
[2021-07-14 06:32] LABS: Albumin 2.9 g/dL (3.4-5.0); BUN/Creatinine Ratio 23.9; Bilirubin, Total 6.3 mg/dL (0.2-1.0); Calcium 8.2 mg/dL (8.5-10.1); Magnesium 2.3 mg/dL (1.6-2.6); Phosphorus 2.9 mg/dL (2.5-4.90); Total Protein 4.3 g/dL (6.4-8.2)
[2021-07-14 07:33] LABS: Nucleated Red Blood Cells % 0.1 %
[2021-07-14 07:34] LABS: Basophils # (auto) 0 10 ^3/uL (0-0.2); Basophils % (auto) 0.1 % (0.0-2.0); Eosinophils # (auto) 0.1 10 ^3/uL (0-0.8); Eosinophils % (auto) 0.6 % (0.0-7.0); Hematocrit 24.2 % (41.0-53.0); Hemoglobin 8.7 g/dL (13.5-17.5); Lymphocytes # (auto) 1.4 10 ^3/uL (0.4-5.4); Lymphocytes % (auto) 10.2 % (10.0-50.0); Mean Corpuscular Hemoglobin 35.8 pg (28.0-32.0); Mean Corpuscular Hgb Conc. 36.1 g/dL (32.0-36.0); Mean Corpuscular Volume 99.2 fL (80.0-100.0); Monocytes # (auto) 0.8 10 ^3/uL (0-1.3); Monocytes % (auto) 6.3 % (0.0-12.0); Neutrophils # (auto) 11.1 10 ^3/uL (1.6-8.6); Neutrophils % (auto) 82.8 % (37.0-80.0); Red Blood Cells 2.44 10^6/uL (4.5-5.90); Red Cell Distribution Width 14.6 % (11.8-14.3); White Blood Cell 13.4 10^3/uL (4.4-10.8)
[2021-07-14 08:30] VITALS: BP 112/52
[2021-07-14] MEDS: cefTRIAXone 1GM/50ML D5W 50 ML IV SCH (08:47)
[2021-07-14 09:00] VITALS: BP 112/52
[2021-07-14] MEDS: MAGNESIUM OXIDE 400 MG TAB PO SCH (09:28)
[2021-07-14] MEDS: LACTULOSE 20Gm/30ML SOLN PO SCH ×2 (09:28→21:36)
[2021-07-14] MEDS: rifAXIMin 550 MG TAB PO SCH ×2 (09:28→21:37)
[2021-07-14] MEDS: PROPRANOLOL HCL 20 MG TAB PO SCH (09:29)
[2021-07-14] MEDS: MORPHINE SULFATE 4 MG/ML SYR/VIAL IV PRN ×2 (15:19→20:50)
[2021-07-14] MEDS ORDERED: SODIUM CHL 3% 500 ML IV ONE (16:00)
[2021-07-14 22:00] VITALS: BP 102/56
[2021-07-15] MEDS: MORPHINE SULFATE 4 MG/ML SYR/VIAL IV PRN ×3 (01:35→20:42)
[2021-07-15 05:00] VITALS: BP 115/54
[2021-07-15] MEDS: buPROPion HCL 75 MG TAB PO SCH ×2 (05:51→18:19)
[2021-07-15 06:30] LABS: INR 1.91 (0.9-1.15)
[2021-07-15 06:37] LABS: Albumin 2.7 g/dL (3.4-5.0); BUN/Creatinine Ratio 24.2; Calcium 8.2 mg/dL (8.5-10.1); Potassium 3.2 mmol/L (3.5-5.1)
[2021-07-15 06:39] LABS: Bilirubin, Total 5.8 mg/dL (0.2-1.0); Total Protein 4.6 g/dL (6.4-8.2)
[2021-07-15] MEDS: cefTRIAXone 1GM/50ML D5W 50 ML IV SCH (08:18)
[2021-07-15 08:20] VITALS: BP 111/61
[2021-07-15 09:00] VITALS: BP 111/61
[2021-07-15] MEDS: rifAXIMin 550 MG TAB PO SCH ×2 (09:59→21:48)
[2021-07-15] MEDS: LACTULOSE 20Gm/30ML SOLN PO SCH ×2 (09:59→21:47)
[2021-07-15] MEDS: MAGNESIUM OXIDE 400 MG TAB PO SCH (09:59)
[2021-07-15] MEDS: PROPRANOLOL HCL 20 MG TAB PO SCH (10:00)
[2021-07-15 13:00] VITALS: BP 109/62
[2021-07-15] MEDS ORDERED: MAGNESIUM OXIDE 400 MG TAB PO ONE (16:00)
[2021-07-15] MEDS ORDERED: POTASSIUM CHL 20 Meq TABLET PO ONE (16:00)
[2021-07-15] MEDS ORDERED: SODIUM CHL 3% 500 ML IV ONE (16:00)
[2021-07-15 17:00] VITALS: BP 144/62
[2021-07-15 22:00] VITALS: BP 114/73
[2021-07-16 05:13] VITALS: BP 113/68
[2021-07-16 06:01] LABS: Basophils # (auto) 0 10 ^3/uL (0-0.2); Eosinophils # (auto) 0.2 10 ^3/uL (0-0.8); Eosinophils % (auto) 1.6 % (0.0-7.0)
[2021-07-16 06:02] LABS: Basophils % (auto) 0.3 % (0.0-2.0); Hematocrit 28.9 % (41.0-53.0); Hemoglobin 10.3 g/dL (13.5-17.5); Lymphocytes # (auto) 1.1 10 ^3/uL (0.4-5.4); Lymphocytes % (auto) 8.7 % (10.0-50.0); Mean Corpuscular Hemoglobin 36.2 pg (28.0-32.0); Mean Corpuscular Hgb Conc. 35.8 g/dL (32.0-36.0); Mean Corpuscular Volume 101.1 fL (80.0-100.0); Monocytes # (auto) 1.2 10 ^3/uL (0-1.3); Monocytes % (auto) 9.4 % (0.0-12.0); Neutrophils # (auto) 10.3 10 ^3/uL (1.6-8.6); Red Blood Cells 2.86 10^6/uL (4.5-5.90); Red Cell Distribution Width 14.9 % (11.8-14.3); White Blood Cell 12.9 10^3/uL (4.4-10.8)
[2021-07-16 06:10] LABS: INR 1.69 (0.9-1.15)
[2021-07-16 06:14] LABS: Potassium 3.9 mmol/L (3.5-5.1)
[2021-07-16 06:19] LABS: Albumin 2.7 g/dL (3.4-5.0); BUN/Creatinine Ratio 23.7
[2021-07-16] MEDS: buPROPion HCL 75 MG TAB PO SCH ×2 (06:27→17:50)
[2021-07-16 06:34] LABS: Bilirubin, Total 5.7 mg/dL (0.2-1.0); Total Protein 4.6 g/dL (6.4-8.2)
[2021-07-16 09:00] VITALS: BP 118/68
[2021-07-16] MEDS: cefTRIAXone 1GM/50ML D5W 50 ML IV SCH (09:39)
[2021-07-16] MEDS: LACTULOSE 20Gm/30ML SOLN PO SCH ×2 (09:40→21:48)
[2021-07-16] MEDS: PROPRANOLOL HCL 20 MG TAB PO SCH (09:40)
[2021-07-16] MEDS: rifAXIMin 550 MG TAB PO SCH ×2 (09:41→21:49)
[2021-07-16] MEDS: MAGNESIUM OXIDE 400 MG TAB PO SCH (09:41)
[2021-07-16] MEDS ORDERED: LIDOCAINE 2%HCL (LOCAL ANESTH.) INJ 20ML MDV ONE (10:30)
[2021-07-16 13:00] VITALS: BP 126/64
[2021-07-16] MEDS ORDERED: SODIUM CHL 3% IV ONE ×2 (14:00→15:45)
[2021-07-16] MEDS: MORPHINE SULFATE 4 MG/ML SYR/VIAL IV PRN ×2 (15:49→21:47)
[2021-07-16 17:00] VITALS: BP 101/59
[2021-07-16 22:00] VITALS: BP 116/65
[2021-07-17 05:00] VITALS: BP 117/65
[2021-07-17 06:39] LABS: Basophils # (auto) 0 10 ^3/uL (0-0.2); Basophils % (auto) 0.2 % (0.0-2.0); Hematocrit 29.1 % (41.0-53.0); Mean Corpuscular Hemoglobin 35.9 pg (28.0-32.0); Nucleated Red Blood Cells % 0.1 %
[2021-07-17 06:43] LABS: INR 1.6 (0.9-1.15)
[2021-07-17] MEDS: buPROPion HCL 75 MG TAB PO SCH ×2 (07:00→18:53)
[2021-07-17 07:06] LABS: Eosinophils # (auto) 0.3 10 ^3/uL (0-0.8); Eosinophils % (auto) 2.2 % (0.0-7.0); Hemoglobin 10.4 g/dL (13.5-17.5); Lymphocytes % (auto) 16.5 % (10.0-50.0); Mean Corpuscular Hgb Conc. 35.9 g/dL (32.0-36.0); Mean Corpuscular Volume 99.9 fL (80.0-100.0); Monocytes # (auto) 2.1 10 ^3/uL (0-1.3); Monocytes % (auto) 17.3 % (0.0-12.0); Neutrophils # (auto) 7.7 10 ^3/uL (1.6-8.6); Neutrophils % (auto) 63.8 % (37.0-80.0); Red Blood Cells 2.91 10^6/uL (4.5-5.90); Red Cell Distribution Width 14.7 % (11.8-14.3); White Blood Cell 12.1 10^3/uL (4.4-10.8)
[2021-07-17 07:15] LABS: Albumin 2.6 g/dL (3.4-5.0); BUN/Creatinine Ratio 27.3; Bilirubin, Total 6.2 mg/dL (0.2-1.0); Calcium 8.1 mg/dL (8.5-10.1); Total Protein 4.6 g/dL (6.4-8.2)
[2021-07-17 08:00] VITALS: BP 99/66
[2021-07-17] MEDS: cefTRIAXone 1GM/50ML D5W 50 ML IV SCH (09:00)
[2021-07-17] MEDS: LACTULOSE 20Gm/30ML SOLN PO SCH ×2 (09:41→21:50)
[2021-07-17] MEDS: MAGNESIUM OXIDE 400 MG TAB PO SCH (09:41)
[2021-07-17] MEDS: rifAXIMin 550 MG TAB PO SCH ×2 (09:42→21:51)
[2021-07-17] MEDS: PROPRANOLOL HCL 20 MG TAB PO SCH (09:42)
[2021-07-17] MEDS ORDERED: SODIUM CHL 3% IV ONE (11:00)
[2021-07-17] MEDS: MORPHINE SULFATE 4 MG/ML SYR/VIAL IV PRN (11:43)
[2021-07-17 12:00] VITALS: BP 128/86
[2021-07-17] MEDS: MIDODRINE HCL 10 MG TAB PO SCH ×2 (12:00→18:00)
[2021-07-17] MEDS: ALBUMIN 25% 100 ML IV SCH ×2 (12:00→21:07)
[2021-07-17 22:45] VITALS: BP 121/67
[2021-07-18] MEDS: ALBUMIN 25% 100 ML IV SCH (04:02)
[2021-07-18 05:15] VITALS: BP 114/71
[2021-07-18 05:15] LABS: Urine Bacteria NONE SEEN /hpf (None Seen); Urine Blood Negative /uL (Negative); Urine Hyaline Cast MOD /lpf (0 - 2); Urine Mucus FEW (None Seen); Urine Specific Gravity 1.021 (1.001-1.035); Urine WBC 4 /hpf (0 - 3)
[2021-07-18] MEDS: MIDODRINE HCL 10 MG TAB PO SCH ×3 (06:21→18:00)
[2021-07-18] MEDS: buPROPion HCL 75 MG TAB PO SCH ×2 (07:00→18:22)
[2021-07-18 08:04] VITALS: BP 113/66
[2021-07-18] MEDS ORDERED: MORPHINE SULFATE 4 MG/ML SYR/VIAL ONE (08:08)
[2021-07-18] MEDS: cefTRIAXone 1GM/50ML D5W 50 ML IV SCH (09:00)
[2021-07-18] MEDS: LACTULOSE 20Gm/30ML SOLN PO SCH ×2 (09:49→21:46)
[2021-07-18] MEDS: MAGNESIUM OXIDE 400 MG TAB PO SCH (09:49)
[2021-07-18] MEDS: rifAXIMin 550 MG TAB PO SCH ×2 (09:49→21:47)
[2021-07-18] MEDS: PROPRANOLOL HCL 20 MG TAB PO SCH (10:00)
[2021-07-18 11:59] LABS: Albumin 3.5 g/dL (3.4-5.0); Calcium 8.4 mg/dL (8.5-10.1)
[2021-07-18 12:00] VITALS: BP 112/72
[2021-07-18 12:01] LABS: BUN/Creatinine Ratio 19.4
[2021-07-18 12:03] LABS: Bilirubin, Total 7.2 mg/dL (0.2-1.0); Total Protein 5.1 g/dL (6.4-8.2)
[2021-07-18 13:58] LABS: Creatinine, Urine 151 mg/dL (30.0-125.0); Protein, Urine 31.8 mg/dL (0.0-11.9); Sodium Urine < 5 mmol/L (40-220)
[2021-07-18 16:00] VITALS: BP 120/66
[2021-07-18] MEDS: MORPHINE SULFATE 4 MG/ML SYR/VIAL IV PRN (21:47)
[2021-07-18 21:55] VITALS: BP 113/67
[2021-07-19] MEDS: MIDODRINE HCL 10 MG TAB PO SCH ×3 (05:15→18:00)
[2021-07-19 05:33] VITALS: BP 115/75
[2021-07-19 06:08] LABS: Basophils # (auto) 0 10 ^3/uL (0-0.2); Basophils % (auto) 0.2 % (0.0-2.0); Eosinophils # (auto) 0.3 10 ^3/uL (0-0.8); Eosinophils % (auto) 2.8 % (0.0-7.0); Hematocrit 26.5 % (41.0-53.0); Hemoglobin 9.7 g/dL (13.5-17.5); Lymphocytes # (auto) 1.8 10 ^3/uL (0.4-5.4); Lymphocytes % (auto) 19.5 % (10.0-50.0); Mean Corpuscular Hemoglobin 36.7 pg (28.0-32.0); Mean Corpuscular Volume 100.3 fL (80.0-100.0); Monocytes # (auto) 1.5 10 ^3/uL (0-1.3); Neutrophils # (auto) 5.8 10 ^3/uL (1.6-8.6); Neutrophils % (auto) 61.5 % (37.0-80.0); Nucleated Red Blood Cells % 0.1 %; Red Blood Cells 2.64 10^6/uL (4.5-5.90); Red Cell Distribution Width 14.7 % (11.8-14.3); White Blood Cell 9.5 10^3/uL (4.4-10.8)
[2021-07-19 06:11] LABS: Mean Corpuscular Hgb Conc. 36.6 g/dL (32.0-36.0)
[2021-07-19 06:16] LABS: Potassium 3.7 mmol/L (3.5-5.1)
[2021-07-19] MEDS: buPROPion HCL 75 MG TAB PO SCH ×2 (06:28→18:00)
[2021-07-19 06:30] LABS: Albumin 3.2 g/dL (3.4-5.0); BUN/Creatinine Ratio 28.9; Calcium 8.5 mg/dL (8.5-10.1)
[2021-07-19 06:33] LABS: Bilirubin, Total 8.8 mg/dL (0.2-1.0); Total Protein 4.7 g/dL (6.4-8.2)
[2021-07-19 08:00] VITALS: BP 128/82
[2021-07-19 08:36] VITALS: BP 128/82
[2021-07-19] MEDS: cefTRIAXone 1GM/50ML D5W 50 ML IV SCH (09:00)
[2021-07-19] MEDS: rifAXIMin 550 MG TAB PO SCH ×2 (09:20→22:00)
[2021-07-19] MEDS: MAGNESIUM OXIDE 400 MG TAB PO SCH (09:20)
[2021-07-19] MEDS: LACTULOSE 20Gm/30ML SOLN PO SCH ×2 (09:21→22:00)
[2021-07-19] MEDS: PROPRANOLOL HCL 20 MG TAB PO SCH (09:22)
[2021-07-19 11:58] VITALS: BP 118/78
[2021-07-19] MEDS: OXYCODONE W/ ACETAMINOPHEN 5/325MG TABLET PO PRN ×3 (14:12→23:22)
[2021-07-19] MEDS: PANTOPRAZOLE 40 MG TAB PO SCH (15:43)
[2021-07-19] MEDS ORDERED: PANTOPRAZOLE 40 MG TAB PO ONE (16:00)
[2021-07-19 16:44] VITALS: BP 131/88
[2021-07-19 21:49] VITALS: BP 127/79
[2021-07-20 05:00] VITALS: BP 122/73
[2021-07-20 05:38] LABS: Basophils # (auto) 0 10 ^3/uL (0-0.2); Eosinophils # (auto) 0.3 10 ^3/uL (0-0.8); Eosinophils % (auto) 3.3 % (0.0-7.0); Hemoglobin 9.5 g/dL (13.5-17.5); Mean Corpuscular Hemoglobin 36.1 pg (28.0-32.0); Red Blood Cells 2.64 10^6/uL (4.5-5.90)
[2021-07-20 05:42] LABS: Basophils % (auto) 0.5 % (0.0-2.0); Hematocrit 26.3 % (41.0-53.0); Lymphocytes % (auto) 21.2 % (10.0-50.0); Mean Corpuscular Hgb Conc. 36.1 g/dL (32.0-36.0); Mean Corpuscular Volume 99.8 fL (80.0-100.0); Monocytes # (auto) 1.4 10 ^3/uL (0-1.3); Monocytes % (auto) 15.5 % (0.0-12.0); Neutrophils # (auto) 5.5 10 ^3/uL (1.6-8.6); Neutrophils % (auto) 59.5 % (37.0-80.0); Red Cell Distribution Width 15.1 % (11.8-14.3); White Blood Cell 9.3 10^3/uL (4.4-10.8)
[2021-07-20 05:54] LABS: Albumin 3.1 g/dL (3.4-5.0); BUN/Creatinine Ratio 21.8; Calcium 8.6 mg/dL (8.5-10.1); Potassium 3.7 mmol/L (3.5-5.1)
[2021-07-20 05:57] LABS: Bilirubin, Total 6.8 mg/dL (0.2-1.0); Total Protein 4.8 g/dL (6.4-8.2)
[2021-07-20] MEDS: MIDODRINE HCL 10 MG TAB PO SCH ×3 (06:51→18:00)
[2021-07-20] MEDS: buPROPion HCL 75 MG TAB PO SCH ×2 (06:52→11:00)
[2021-07-20 09:00] VITALS: BP 122/73
[2021-07-20] MEDS: cefTRIAXone 1GM/50ML D5W 50 ML IV SCH (09:00)
[2021-07-20] MEDS: LACTULOSE 20Gm/30ML SOLN PO SCH ×2 (10:00→21:41)
[2021-07-20] MEDS: rifAXIMin 550 MG TAB PO SCH ×2 (10:00→21:41)
[2021-07-20] MEDS: PROPRANOLOL HCL 20 MG TAB PO SCH (10:00)
[2021-07-20] MEDS: MAGNESIUM OXIDE 400 MG TAB PO SCH (10:00)
[2021-07-20] MEDS: OXYCODONE W/ ACETAMINOPHEN 5/325MG TABLET PO PRN ×2 (10:33→15:27)
[2021-07-20 12:57] VITALS: BP 115/78
[2021-07-20] MEDS: OCTREOTIDE ACETATE 100 MCG/ML VL SUBCUT SCH ×2 (13:35→21:48)
[2021-07-20 15:35] LABS: Hepatitis C Antibody Negative (Negative)
[2021-07-20 17:00] VITALS: BP 121/71
[2021-07-20 20:00] VITALS: BP 132/77
[2021-07-20 21:41] VITALS: BP 119/80
[2021-07-21 05:13] VITALS: BP 122/71
[2021-07-21] MEDS: MIDODRINE HCL 10 MG TAB PO SCH ×2 (07:00→12:00)
[2021-07-21] MEDS: OCTREOTIDE ACETATE 100 MCG/ML VL SUBCUT SCH (07:01)
[2021-07-21] MEDS: buPROPion HCL 75 MG TAB PO SCH (07:02)
[2021-07-21 08:07] LABS: Eosinophils # (auto) 0.2 10 ^3/uL (0-0.8); Lymphocytes # (auto) 1.2 10 ^3/uL (0.4-5.4); Neutrophils # (auto) 5.6 10 ^3/uL (1.6-8.6); White Blood Cell 8.1 10^3/uL (4.4-10.8)
[2021-07-21 08:09] LABS: Basophils # (auto) 0.1 10 ^3/uL (0-0.2); Basophils % (auto) 0.6 % (0.0-2.0); Hematocrit 28.1 % (41.0-53.0); Hemoglobin 9.8 g/dL (13.5-17.5); Lymphocytes % (auto) 14.6 % (10.0-50.0); Mean Corpuscular Hemoglobin 35.2 pg (28.0-32.0); Mean Corpuscular Volume 100.6 fL (80.0-100.0); Neutrophils % (auto) 69.8 % (37.0-80.0); Red Cell Distribution Width 15.2 % (11.8-14.3)
[2021-07-21 08:42] LABS: BUN/Creatinine Ratio 20.3; Calcium 8.1 mg/dL (8.5-10.1); Potassium 3.7 mmol/L (3.5-5.1)
[2021-07-21 08:47] LABS: INR 1.66 (0.9-1.15)
[2021-07-21] MEDS: cefTRIAXone 1GM/50ML D5W 50 ML IV SCH (09:00)
[2021-07-21 09:15] VITALS: BP 114/68
[2021-07-21] MEDS: OXYCODONE W/ ACETAMINOPHEN 5/325MG TABLET PO PRN ×2 (09:25→14:00)
[2021-07-21] MEDS: PANTOPRAZOLE 40 MG TAB PO SCH (10:00)
[2021-07-21] MEDS: PROPRANOLOL HCL 20 MG TAB PO SCH (10:00)
[2021-07-21] MEDS: LACTULOSE 20Gm/30ML SOLN PO SCH (10:00)
[2021-07-21] MEDS: rifAXIMin 550 MG TAB PO SCH (10:00)
[2021-07-21] MEDS: MAGNESIUM OXIDE 400 MG TAB PO SCH (10:00)
[2021-07-21] MEDS ORDERED: MID10T PO (10:23)
[2021-07-21 12:41] VITALS: BP 111/73
== END 2021-07-21 14:15 | disposition home or self-care (01) | DRG 871 ==
LOC: ER 17:16 → OVERFLOW 21:17 → WEST WING 23:01
PROVIDERS: ADMIT Nurse Practitioner; ATTEND Internal Medicine
PROC: 0W9G3ZZ Drainage of Peritoneal Cavity, Percutaneous Approach (ICD-10-PCS; principal; 2021-07-13)
PROC: 0W9G3ZZ Drainage of Peritoneal Cavity, Percutaneous Approach (ICD-10-PCS; 2021-07-16)
DX: A41.9 Sepsis, unspecified organism (principal); K76.7 Hepatorenal syndrome; G93.41 Metabolic encephalopathy; K85.90 Acute pancreatitis without necrosis or infection, unspecified; E87.1 Hypo-osmolality and hyponatremia; K70.31 Alcoholic cirrhosis of liver with ascites; E87.8 Other disorders of electrolyte and fluid balance, not elsewhere classified; E87.6 Hypokalemia; Z20.822 Contact with and (suspected) exposure to COVID-19; D69.6 Thrombocytopenia, unspecified; I10 Essential (primary) hypertension; S00.83XA Contusion of other part of head, initial encounter; F12.90 Cannabis use, unspecified, uncomplicated; D64.9 Anemia, unspecified; E87.70 Fluid overload, unspecified; Y92.89 Other specified places as the place of occurrence of the external cause; Y99.8 Other external cause status
CPT/HCPCS: 36415; 70450; 74176; 76700; 76942; 80048; 80053; 81001; 82105; 82140; 82150; 82306; 82570; 83605; 83690; 83735; 83930; 83935; 84100; 84156; 84295; 84300; 85025; 85610; 85730; 86803; 87040; 87340; 87426; 96374; 96375; G0378; J0696; J2405; P9047